=== PATIENT | male | born 1975 | race Caucasian/White ===

== ENCOUNTER 2021-06-08 09:28 | Emergency (ER) | payer OTHER ==
[2021-06-08 11:13] LABS: BLOOD UREA NITROGEN,BUN 9 mg/dL (7.0-18.0); CARBON DIOXIDE,CO2 27.1 mmol/L (21.0-32.0); CHLORIDE,CL 101 mmol/L (98-107); GLUCOSE RANDOM 94 mg/dL (74-106); POTASSIUM,K 3.7 mmol/L (3.5-5.1); SODIUM,NA 137 mmol/L (136-148)
== END 2021-06-08 11:33 | disposition home or self-care (01) ==
LOC: MW.ED 09:28
DX: M79.661 Pain in right lower leg (principal)
CPT/HCPCS: 36415; 80053; 85025; 85610; 93971-26-RT; 93971-RT; 99284-25